=== PATIENT | male | born 1990 | race Caucasian/White ===

== ENCOUNTER 2021-11-21 11:17 | Day surgery (SDC) | payer OTHER ==
[~2021-11-21 11:17] MED LIST: CEFAZOLIN SODIUM IN 0.9 % NACL 2 GM/50 ML BAG IV ONE
[2021-11-21] MEDS ORDERED: LACTATED RINGERS 1,000 ML IV ONE (11:40)
--- NOTE | 2021-11-21 11:47 | ANESTHESIA ---
Pre-Anesthesia VS, & Labs - Diagnosis umbilical hernia - Procedure umbilical hernia repair Vital Signs: Temp Pulse Resp BP Pulse Ox 36.8 C 73 16 132/95 H 100 11/21/21 11:40 11/21/21 11:40 11/21/21 11:40 11/21/21 11:40 11/21/21 11:40 Height: 5 ft 8 in Weight (kg): 76 kg Body Mass Index: 25.4 BMI Classification: Overweight - NPO >8 hours Home Medications and Allergies Allergies/Adverse Reactions: Allergies Allergy/AdvReac Type Severity Reaction Status Date / Time No Known Drug Allergies Allergy Verified 11/21/21 11:48 Anes History & Medical History - Anesthetic History Anesthesia Complications: reports: No previous complications - Medical History Cardiovascular: reports: None Pulmonary: reports: None Gastrointestinal: reports: None Urinary: reports: None Musculoskeletal: reports: None Skin: reports: None Exam General: Alert, Oriented x3 Dental: WNL Mouth Opening: Greater than 4 Fingerbreadths Neck Mobility: Normal Mallampati classification: I Thyromental Distance: greater than 6 cm Respiratory: Lungs clear Cardiovascular: Regular rate Plan Anesthesia Type: General, Total IV Consent for Procedure(s) Verified and Reviewed: Yes Code Status: Attempt Resuscitation ASA classification: 1-Healthy patient Is this case an emergency?: No
[2021-11-21] MEDS ORDERED: BUPIVACAINE 0.25% PF 10 ML VIAL ONE (12:10)
[2021-11-21] MEDS ORDERED: LIDOCAINE MPF 2%-EPI 1:200000 20 ML VIAL ONE (12:10)
[2021-11-21] MEDS ORDERED: ceFAZolin 1 GM VIAL ONE (12:11)
[2021-11-21] MEDS ORDERED: MIDAZOLAM 2 MG/2 ML VIAL ONE (12:25)
[2021-11-21] MEDS ORDERED: fentaNYL 100 MCG/2 ML VIAL ONE (12:25)
[2021-11-21] MEDS ORDERED: LIDOCAINE-MPF 2% 5 ML VIAL ONE (12:27)
[2021-11-21] MEDS ORDERED: PROPOFOL 200 MG/20 ML VIAL IVP ONE (12:27)
[2021-11-21] MEDS ORDERED: PROPOFOL 500 MG/50 ML 500 MG/50 ML VIAL ONE (12:45)
[2021-11-21] MEDS ORDERED: LIDOCAINE MPF 2%-EPI 1:200000 20 ML VIAL SUBQ ONE ×2 (12:52→13:00)
[2021-11-21] MEDS ORDERED: BUPIVACAINE 0.25% PF 10 ML VIAL SUBQ ONE ×2 (12:52→13:00)
[2021-11-21] MEDS ORDERED: ceFAZolin 1 GM VIAL IR ONE ×2 (12:53→13:00)
[2021-11-21] MEDS ORDERED: ONDANSETRON 4 MG/2 ML VIAL IVP PRN (13:13)
[2021-11-21] MEDS ORDERED: ACETAMINOPHEN 325 MG TABLET PO PRN (13:13)
[2021-11-21] MEDS ORDERED: oxyCODONE 5 MG TABLET PO PRN (13:13)
[2021-11-21] MEDS ORDERED: IBUPROFEN 600 MG TABLET PO PRN (13:13)
--- NOTE | 2021-11-21 13:13 | OPERATIVE REPORT ---
Operative Report - General Procedure Date: 11/21/21 Planned Procedure: Umbilical hernia repair Pre-Op Diagnosis: Incarcerated umbilical hernia Procedure Performed: Umbilical hernia repair with Ventralex mesh Post Op Diagnosis: Incarcerated umbilical hernia - Procedure Note Primary Surgeon: Doreen Anesthesia Provider: KARL Bruno Anesthesia Technique: General mask, Local Pathology: None Estimated Blood Loss (mL): 5 Indications: Painful and incarcerated umbilical hernia Findings: 1 cm umbilical defect containing perperitoneal fat Complications: None apparent - Other Other Information/Narrative: After obtaining informed consent, the patient is brought to the operating room and placed in the supine position on the operating table. Following successful induction of general endotracheal anesthesia, appropriate padding of all bony prominences, and placement of appropriate monitors, the abdomen was prepped and draped in the standard surgical fashion. A timeout was held per scope protocol. All elements of the surgical safety checklist were followed before, during, and after the procedure. Following infiltration with local anesthetic to create a field block, an incision was created directly through the umbilicus and over the palpable and visible defect. This was carried through the skin and subcutaneous tissue. The umbilical tissue was then freed from the umbilical remnant for complete exposure to the hernia sack. The defect was noted to be approximately 1 cm in greatest dimension. The hernia sac itself was approximately 3 cm. The hernia sac was carefully dissected free from the overlying skin and underlying fascial tissue as well as the surrounding areolar tissue. The contents of the sac were eased back into the abdominal cavity without opening the peritoneum. The surgically was then inserted into the defect and the anterior abdominal wall palpated internally to be sure there was enough space for mesh placement. We elected to repair the defect with a 4.3 cm a portion of Ventralex ST mesh. The mesh was dipped in Ancef solution and into the defect. It was straightened and flattened in the preperitoneal space. Placement was checked and adjusted. Once we were satisfied it was ideal, the tails were trimmed and sewn to the fascia anteriorly. The wound was checked for hemostasis and irrigated with Ancef containing solution The umbilicus was reconstructed with interrupted Vicryl suture. The incision was closed in layers with Vicryl and Monocryl suture and Dermabond was applied to the skin. All sponge, needle, and instrument counts were correct at the conclusion of the case. The patient was allowed awaken from anesthesia without difficulty and taken to the postanesthesia care unit in good condition.
[2021-11-21] MEDS ORDERED: LACTATED RINGERS 100 ML IV ONE (13:15)
[2021-11-21 13:33] VITALS: BP 111/61
--- NOTE | 2021-11-21 15:34 | ANESTHESIA POST OP EVALUATION ---
Anesthesia Post Eval - Post Anesthesia Eval Vitals: Last Vital Signs Temp 36.3 C L 11/21/21 13:32 Pulse 73 11/21/21 13:32 Resp 16 11/21/21 13:32 BP 111/61 11/21/21 13:32 Pulse Ox 97 11/21/21 13:32 CV Function Including HR & BP: Stable Pain Control: Satisfactory Nausea & Vomiting: Negative Mental Status: Baseline Respiratory Status: Airway Patent Hydration Status: Satisfactory Anesthesia Complications: None
== END 2021-11-21 11:18 | disposition home or self-care (01) ==
LOC: SDS 11:17
PROVIDERS: ATTEND Surgery
DX: K42.0 Umbilical hernia with obstruction, without gangrene (principal)
CPT/HCPCS: 49587; C1781; J0690; J7120